=== PATIENT | male | born 1980 | race Two or more races ===

== ENCOUNTER 2025-07-22 07:33 | Inpatient (IN) | payer SELFPAY ==
[2025-07-22] VITALS (24 sets, daily range): BP systolic 120–167; BP diastolic 61–103; PULSE 56–92; RESP 14–26; TEMP 37.1–38.8; O2SAT 90–100; BMI 26.6
--- OUTSIDE RECORDS SUMMARY | 2025-07-22 03:21 | XMS_ITS | Continuity of Care Document ---
Author Organization [facility] Address [address] [place] [address] Phone Care Team Providers Care Administrative Secretary Name Role Phone Sukhdev MSN, FOREST WORKER, Lauren Unavailable Unavai lable Allergies, Adverse Reactions, Alerts Substance Reaction Status Criticality No Known Allergies Active No Inform ation Medications Medication Instructions Dosage Effective Dates (start - stop) Status Comments irbesartan 75 mg tablet take 1 tablet by oral route every day 75 MG - Active Claribel Allergy 180 mg tablet take 1 tablet by oral route every day 180 MG - Active fluticasone propionate 50 mcg/actuation nasal spray,suspension spray 1 - 2 spray by intranasal route every day in each nostril as needed 50-100 MCG - Active Advance Directives Directive Yes / No Effective Date File Name No Information Encounters Encounter Description Practice Location Reason(s) For Visit Diagnoses Date Provider [facility], [address] [place] [address], [facility], tel:[phone] [email or web address] No Information Sukhdev Aguilar. [address] [place], [place], [id number] , . tel:[phone] [facility], [facility] [address] [place], [place], [facility], tel:[phone] [facility] [place] f/u labs (chief complaint) Body mass index [BMI] 25.0-25.9, adultEssential (primary) hypertensionHyperlipi demia, unspecifiedAcute renal injury Santizo Lauren. [address] [place], [place], [id number] , [place]. tel: [phone] [facility], [address] [place], [address], tel:[phone] [facility] [place] Prapare (chief complaint)D epression screening (chief complaint)E stablish Care (chief complaint) Extreme povertyLess than a high school diplomaInsufficient health insurance coverageEncounter for screening for depressionBody mass index [BMI] 24.0-24.9, adultEssential (primary) hypertensionOther seasonal allergic rhinitisHyperlipidemi a, unspecified Sukhdev Aguilar. [address] [place], [place], [id number] , . tel: [phone] Family History Family Member Type Diagnosis Age At Onset No Information Payers Payer name Insurance type Covered green party ID Leandra ocampo(s) [facility]- Covered Under Aubrey CI [id number] Social History Type Description Quantity Date Captured Comments Sex Male Smoking Status No Information Sexual Orientation Straight or heterosexual Apr Gender Identity Male Chief Complaint And Reason For Visit No Information Plan Of Treatment Date Type Action Status Goal Lipid panel. Due on 026 due Goal CMP. Due on due Goal Tobacco Use Cessation Counse ling. Due on due Goal Drug Abuse Screening Test (D AST-10). Due on due Goal Unhealthy drug use screening . Due on due Goal Vitamin B12. Due on 025 due Goal Obtain Height, Weight, and B ND. Due on due Goal CBC. Due on due Goal HIV screen. Due on 25 due Goal Influenza vaccine. Due on due Goal Depression screening. Due on due Goal Follow up Plan f or abnormal BMI (Less than 18.5, greater than 25). Due on due Goal Hepatitis C Screening. Due o n due Goal Generalized Anxi ety Disorder - 7 (SIRIA-7). Due on due Goal Vitamin D. Due on due Goal Tobacco Use Screening. Due o n due Goal Diabetes screening. Due on S due Goal Tobacco screening. Due on due Goal Obtain blood Pressure. Due o n due Goal Urinalysis. Due on due Goal ECG. Due on due Goal Hemoglobin (Preemie/HR 9 mon ths). Due on due Goal Hematocrit/Hemoglobin. Due o n due Goal Lifestyle education regardin g diet completed Goal Tobacco screening. Due on due Goal HIV screen. Due on due Goal Lipid panel. Due on 026 due Goal Drug Abuse Screening Test (D AST-10). Due on due Goal Obtain Height, Weight, and B ND. Due on due Goal Vitamin D. Due on due Goal Unhealthy drug use screening . Due on due Goal Tobacco Use Screening. Due o n due Goal Vitamin B12. Due on 025 due Goal Tobacco Use Cessation Allyson kirkland. Due on due Goal Depression screening. Due on due Goal Hepatitis C Screening. Due o n due Goal Influenza vaccine. Due on Se due Goal Diabetes screening. Due on S due Goal Generalized Anxi ety Disorder - 7 (SIRIA-7). Due on due Goal CMP. Due on due Goal CBC. Due on due Goal Follow up Plan f or abnormal BMI (Less than 18.5, greater than 25). Due on due Goal Hematocrit/Hemoglobin. Due o n due Goal Hemoglobin (Preemie/HR 9 mon ths). Due on due Goal Urinalysis. Due on due Goal ECG. Due on due Goal Obtain blood Pressure. Due o n due Goal Lifestyle education regardin g diet completed History Of Present Illness Encounter Date Complaint History Of Prese nt Illness f/u labs Jonathan is here to day for f/u on labs:Overall okLDL 144 and trigs 75- will start rosuvistatinCreatinine 1.40- increase water and avoid use of NSAIDSreports he has been drinking water and does use ibuprofen at times, but not often.Will plan to repeat cmp in 1 month. [place] complete d 05/08/25. -Aw, CM Depression screening Depression screening completed 05/08/25. Pt scored 0, provider aware. -AW,CM Establish Care Jonathan is here to day as a new patient to establish care.He has NKA. His BP today is 160/90 in his right arm while sitting and 161/90 in his left arm while sitting. His HR is 50 bpm, retake is 53 bpm, Respirations are 18, Temp 98.1, and O2 is 98%He is here today for evaluation and tx of Abdominal pain x 3 months in Right Mid Quadrant.His health hx includes HLD, HTN and Seasonal Allergies. He denies any surgical hx. No hx of a Colonoscopy. His family hx includes his mother who is alive and well, his father is from lung issues, 6 sisters that are alive and well, 3 brothers, 1 has HTN, BPH, Anxiety, 1 daughter that is alive and well and 2 sons that are alive and well. Pt is not a current smoker. He used to smoke 1/2 ppd. He started smoking at the age of 14 and quit 2 months ago at age 44. He is exposed to second hand smoke in the home. He also drinks 2-6 beers every weekend. He denies past or present recreational drug use. He drinks 4 cups of coffee and soda daily.He reports that he has had his Covid Vaccines, including a booster. He has not had his flu shot for this season. He denies seeing any specialist at this time. Instructions Date Instruction Additional Infor milanj Maintain blood press ure levels and sugar levels in goal range to reduce further renal damage. Follow a low-salt, renal diet. Avoid NSAIDs if at all possible. Drink water for hydration. Limit soda consumption. Maintain healthy body weight. Physical activity as tolerated. Related to Acute renal injury Low fat, low cholest elvira diet. Avoid fatty, fried, and greasy foods. Physical activity as tolerated. Counseled on risks of associated comorbidities, such as heart disease and stroke. Encouraged avoidance of tobacco products. Related to Hyperlipidemia, unspecified Patient instructed o f the importance of taking medications as prescribed, following a low salt diet as well as getting physical activity as tolerated. Patient advised to keep BP log daily checking each morning and before bed. Patient to call the clinic if systolic blood pressure is greater than 150 and/or diastolic blood pressure is staying greater than 90. Related to Essential (primary) hypertension Giving encouragement to exercise Related to Body mass index [BMI] 25.0-25.9, adult Lifestyle education regarding di et Related to Body mass index [BMI] 25.0-25.9, adult Low fat, low cholest elvira diet. Avoid fatty, fried, and greasy foods. Physical activity as tolerated. Counseled on risks of associated comorbidities, such as heart disease and stroke. Encouraged avoidance of tobacco products. Related to Hyperlipidemia, unspecified Drink plenty of flui ds. Use nasal saline rinses. Nasal steroid spray if tolerated. Antihistamines as needed. Avoid allergy triggers when possible. Related to Other seasonal allergic rhinitis Patient instructed o f the importance of taking medications as prescribed, following a low salt diet as well as getting physical activity as tolerated. Patient advised to keep BP log daily checking each morning and before bed. Patient to call the clinic if systolic blood pressure is greater than 150 and/or diastolic blood pressure is staying greater than 90. Related to Essential (primary) hypertension Giving encouragement to exercise Related to Body mass index [BMI] 24.0-24.9, adult Lifestyle education regarding di et Related to Body mass index [BMI] 24.0-24.9, adult Assessments Type Assessment Date No Information
--- OUTSIDE RECORDS SUMMARY | 2025-07-22 03:21 | XMS_ITS | Continuity of Care Document ---
Author Organization [facility] Address [address] [place] [address] Phone Care Team Providers Care Rn Social Work Name Role Phone Sukhdev MSN, BUS INSPECTOR, Lauren Unavailable Unavai lable Allergies, Adverse Reactions, [...] Location Reason(s) For Visit Diagnoses Date Provider [facility], [address] [place] [address], [facility], tel:[phone] [place] No Information Sukhdev Aguilar. [address] [place], [place], [id number] , . tel:[phone] [facility], [facility] [address] [place], [place], [facility], tel:[phone] [address] [facility] [place] [place] f/u labs (chief complaint) Body mass index [BMI] 25.0-25.9, adultEssential (primary) hypertensionHyperlipi demia, unspecifiedAcute renal injury Santizo Lauren. [address] [place], [place], [id number] , [place]. tel: [phone] [facility], [address] [place], [address], tel:[phone] [address] [facility] [place] [place] Prapare (chief complaint)D epression screening (chief complaint)E stablish Care (chief complaint) Extreme povertyLess than a high school diplomaInsufficient health insurance coverageEncounter for screening for depressionBody mass index [BMI] 24.0-24.9, adultEssential (primary) hypertensionOther seasonal allergic rhinitisHyperlipidemi a, unspecified Sukhdev Aguilar. [address] [place], [place], [id number] , . tel: [phone] Family History Family Member Type Diagnosis Age At Onset No Information Payers Payer name Insurance type Covered constitution party ID Leandra ocampo(s) [facility]- Covered Under Aubrey CI [id number] Social History Type Description Quantity Date Captured [...] due Goal Obtain Height, Weight, and B RI. Due on due Goal CBC. Due on [...] due Goal Obtain Height, Weight, and B RI. Due on due Goal Vitamin D. Due [...]
--- NOTE | 2025-07-22 07:52 | CT_ITS ---
FINAL REPORT TECHNIQUE: Thin section axial images are obtained through the abdomen and pelvis after intravenous contrast. Reconstruction images were obtained from the axial data. Exam was performed using dose reduction techniques. CLINICAL HISTORY: right sided abominal tenderness COMPARISON: None FINDINGS: LUNG BASES: Nonspecific ground glass opacity in the lower lobes, pneumonia not excluded. Heart size is normal. LIVER: Homogeneous. No focal lesion. GALLBLADDER/BILIARY SYSTEM: Gallbladder is present. No gallstones. No biliary dilatation. SPLEEN: Unremarkable. PANCREAS: Unremarkable. ADRENALS: Unremarkable. KIDNEYS/URETERS/BLADDER: There are innumerable cysts in the kidneys bilaterally. No hydronephrosis. The kidneys are mildly enlarged. Unremarkable urinary bladder. GI TRACT: No evidence of small bowel obstruction. Dilated thick-walled retrocecal appendix measuring 12 mm in diameter with surrounding inflammation consistent with acute appendicitis. Remaining GI tract without acute abnormality. PELVIC ORGANS: Prostate enlarged. Areas of hypodensity in the prostate, prostatitis cannot be excluded. LYMPH NODES/RETROPERITONEUM/MESENTERY: No lymphadenopathy. No abdominal aortic aneurysm. ABDOMINAL WALL: The abdominal wall is intact. FREE FLUID: No ascites. BONES: No acute osseous abnormality. IMPRESSION: Acute appendicitis in the retrocecal appendix. Areas of hypodensity in the prostate which is enlarged for age, prostatitis on excluded. Enlarged kidneys with innumerable cysts raising concern for autosomal dominant polycystic kidney disease. Reviewed, Interpreted and Dictated by Yuliya Bueno MD Transcribed by Natty Topete Authenticated and [facility]
[2025-07-22] MEDS: MORPHINE 4MG/ML SYRINGE 4 MG IV (08:11)
[2025-07-22] MEDS: ONDANSETRON 4MG/2ML VIAL 4 MG IV (08:11)
[2025-07-22 08:12] LABS: Hematocrit 39.0 % (42.0-52.0); Hemoglobin 13.2 g/dL (14.1-18.0); Immature Granulocytes % 0.4 %; Mean Corpuscular HGB Conc 33.8 g/dL (31.8-35.4); Mean Corpuscular Hemoglobin 30.1 pg (27.0-31.2); Mean Corpuscular Volume 88.8 fl (80-94); Nucleated Red Blood Cells % 0 %; Platelet Count 334 K/mm3 (142-424); Red Blood Count 4.39 M/mm3 (4.60-6.20); Red Cell Distribution Width-SD 42.7 fL; White Blood Count 18.3 K/mm3 (4.8-10.8)
[2025-07-22 08:13] LABS: Alanine Aminotransferase 37 U/L (12-78); Albumin Level 4.5 g/dl (3.5-5.0); Albumin/Globulin Ratio 1.4 (1.1-1.8); Alkaline Phosphatase 68 U/L (38-126); Anion Gap 11.1 mEq/L (5-15); Aspartate Amino Transferase 42 U/L (17-59); Bilirubin,Total 0.6 mg/dl (0.2-1.3); Blood Urea Nitrogen 23 mg/dl (9-20); Calcium 9.2 mg/dl (8.4-10.2); Carbon Dioxide 26 mmol/L (22.0-30.0); Chloride 102 mmol/L (98-107); Creatinine Clearance Estimated 83 mL/min (50-200); Creatinine,Serum 1.10 mg/dl (0.66-1.25); Estimated Glomerular Filt Rate 72 ml/min (>60); GFR (African American) 87 ML/MIN (>60); Globulin 3.3 g/dL (1.3-3.2); Glucose 167 mg/dl (74-100); INR 1.04 (0.9-1.1); Lipase 59 U/L (23-300); Potassium 4.1 mmoL/L (3.5-5.1); Prothrombin Time 11.5 seconds (10.1-12.5); Sodium 135 mmol/L (136-145); Total Protein,Serum 7.8 g/dl (6.3-8.2)
[2025-07-22 08:27] LABS: Magnesium 1.7 mg/dl (1.6-2.3)
[2025-07-22] MEDS: SODIUM CHLORIDE 0.9% 10ML SYR (RAD ONLY) 10 ML IV (08:38)
[2025-07-22] MEDS: IOPAMIDOL-370 (76%);100ML BOTTLE 75 ML IV (08:38)
[2025-07-22 08:51] LABS: Microscopic, Urine URINE MICROSCOPIC (MICROSCOPIC)
--- NOTE | 2025-07-22 08:57 | ED_ITS ---
Discharge Plan Disposition Patient Disposition: Still a Patient Condition: Fair Clinical Impressions Clinical Impression: Appendicitis Discharge ED Provider: Mi Rose General Adult HPI General Chief complaint: Abdominal Pain Stated complaint: Stomach Pain Time Seen by Provider: 07/22/25 07:38 Mode of Arrival: Ambulatory Source of Information: Patient Description of Symptoms (Recalled from ER Triage Doc. by RN): pt presents to ED with c/o right sided abdominal pain. pt reports symptoms began last night around 10 pm. pt reports that last night he took an omprazole but no relief. pt reports no history of surgeries. pt reports some nausea, but no vomitting or diarrhea. History of Present Illness HPI narrative: Patient is a 44-year-old gentleman, Jamaican-speaking who presented to the emergency department with acute onset right lower quadrant abdominal pain. Patient states that the pain started acutely, does not radiate into his groin or into his back. Patient denies any vomiting or diarrhea. Patient denies any fevers. Patient denies any chest pain or shortness of breath or upper respiratory symptoms. Patient denies any prior surgeries. Patient does not take any daily medications. States that his pain is currently an 8 out of 10. No urinary symptoms. Related Data Home Medications ?Medication ?Instructions ?Recorded ?Confirmed fexofenadine 180 mg tablet 180 mg PO DAILY 07/22/25 fluticasone propionate 50 1 spray intranasal BID PRN 1 09/21/24 07/22/25 mcg/actuation nasal ALLERGIES spray,suspension (Flonase Allergy Relief) irbesartan 75 mg tablet 75 mg PO DAILY 07/22/2506/28 Allergies Allergy/AdvReac Type Severity Reaction Status Date / Time No Known Allergies Allergy Verified 07/22/25 07:49 [facility] Disclaimer: The information contained in this section may have been updated after the patient was seen, as this information can be updated by other users. Social History (Updated 07/22/25 @ 10:53 by Zohaib Canas MD) Smoking Status: Never smoker alcohol intake: never current occupational status: employed Travel in the last 8 weeks?: None ROS Obtained: Yes All systems reviewed & no additional complaints except as documented and Yes Systems reviewed as appropriate & no additional complaints except as documented Physical Exam General General appearance: alert and in no apparent distress Head Head exam: atraumatic, normocephalic and normal inspection Eye Eye exam: Present normal appearance, PERRL and EOMI; Absent scleral icterus ENT ENT exam: Present normal exam and normal external ear exam Neck Neck exam: Present normal inspection and full ROM Chest Chest inspection: Present normal inspection and symmetric chest wall rise Respiratory Respiratory exam: Present normal lung sounds bilaterally; Absent respiratory distress or wheezes Cardiovascular Cardiovascular exam: Present regular rate, normal rhythm and normal heart sounds Abdominal Exam Abdominal exam: Present soft, distention and tenderness (RLQ tenderness); Absent guarding or rebound Extremities Exam Extremities exam: Present normal inspection and full ROM Back Exam Back exam: Present normal inspection and full ROM Neurological Exam Neurological exam: Present alert and oriented X3 Psychiatric Psychiatric exam: Present normal affect and normal mood Skin Skin exam: Present warm and dry Medical Decision Making Medical Records Medical records reviewed: Yes I reviewed the patient's medical records. Screening: Per USPSTF and CDC recommendations, given the prevalence of disease in our region, it is our hospital?s policy to screen for HIV and viral Hepatitis for all patients aged 18 and over and those with ongoing risk factors. [place] Inquiry Pt receiving controlled substance: No Vital Signs: 07/22/25 07:47 07/22/25 07:53 07/22/25 08:00 Temperature 98.9 F Temperature Source Oral Pulse Rate 57 L 56 L Pulse Rate [Left Radial] 64 Respiratory Rate 14 19 21 Blood Pressure 138/81 130/83 Blood Pressure [Right Arm] 145/95 H Blood Pressure Mean [Right Arm] 111 Blood Pressure Source [Right Arm] Blood Pressure Position [Right Arm] 02 Sat by Pulse Oximetry 98 98 100 Oxygen Delivery Method Room Air Room Air Room Air 07/22/25 08:45 07/22/25 09:00 07/22/25 09:17 Temperature Temperature Source Pulse Rate 62 61 70 Pulse Rate [Left Radial] Respiratory Rate 18 14 22 Blood Pressure 139/82 146/92 H 120/91 H Blood Pressure [Right Arm] Blood Pressure Mean [Right Arm] Blood Pressure Source [Right Arm] Blood Pressure Position [Right Arm] 02 Sat by Pulse Oximetry 99 98 96 Oxygen Delivery Method 07/22/25 09:30 07/22/25 09:45 07/22/25 10:30 Temperature 98.8 F Temperature Source Temporal Artery Scan Pulse Rate 71 62 Pulse Rate [Left Radial] 62 Respiratory Rate 15 23 23 Blood Pressure 151/89 H 131/86 Blood Pressure [Right Arm] 131/86 Blood Pressure Mean [Right Arm] 101 Blood Pressure Source [Right Arm] Automatic Cuff Blood Pressure Position [Right Arm] Supine 02 Sat by Pulse Oximetry 98 97 99 Oxygen Delivery Method Room Air 07/22/25 10:31 Temperature 98.8 F Temperature Source Pulse Rate 62 Pulse Rate [Left Radial] Respiratory Rate 23 Blood Pressure 131/86 Blood Pressure [Right Arm] Blood Pressure Mean [Right Arm] Blood Pressure Source [Right Arm] Blood Pressure Position [Right Arm] 02 Sat by Pulse Oximetry Oxygen Delivery Method Room Air Lab Data Lab results reviewed: Yes I reviewed the patient's lab results. Lab Results 07/22/25 07:44: WBC 18.3 H, RBC 4.39 L, Hgb 13.2 L, Hct 39.0 L, MCV 88.8, MCH 30.1, MCHC 33.8, RDW 13.1, Plt Count 334, MPV 10.9 H, Neut % (Auto) 78.2, Lymph % (Auto) 15.8, [place] % (Auto) 4.4, Eos % (Auto) 0.9, Baso % (Auto) 0.3, Neut # (Auto) 14.3 H, Lymph # (Auto) 2.9, [place] # (Auto) 0.8, Eos # (Auto) 0.2, Baso # (Auto) 0.1, PT 11.5, INR 1.04, Sodium 135 L, Potassium 4.1, Chloride 102, Carbon Dioxide 26, Anion Gap 11.1, BUN 23 H, Creatinine 1.10, Estimated Creat Clear 83, Estimated GFR 72, Est GFR ( Amer) 87, Glucose 167 H, Calcium 9.2, Magnesium 1.7, Total Bilirubin 0.6, AST 42, ALT 37, Alkaline Phosphatase 68, Total Protein 7.8, Albumin 4.5, Globulin 3.3 H, Albumin/Globulin Ratio 1.4, Lipase 59, HCV Ab RAMONE w/Rflx PCR Qn Negative, HIV Ag/Ab Combo Qual Negative 07/22/25 08:08: Blood Type A Positive, Antibody Screen Negative 07/22/25 08:45: Urine Color Yellow, Urine Appearance Clear, Urine pH 5.5, Ur Specific [place] 1.010, Urine Protein Trace, Urine Glucose (UA) Negative, Urine Ketones Negative, Urine Blood 1+ A, Urine Nitrate Negative, Urine Bilirubin Negative, Urine Urobilinogen 0.2, Ur Leukocyte Esterase Negative, Urine RBC 3-5, Urine WBC Occasional, Ur Squamous Epith Cells Occasional, Urine Bacteria None 07/22/25 11:05: Urine Color Yellow, Urine Appearance Clear, Urine pH 6.0, Ur Specific [place] <= 1.005, Urine Protein Trace, Urine Glucose (UA) Negative, Urine Ketones Negative, Urine Blood 2+, Urine Nitrate Negative, Urine Bilirubin Negative, Urine Urobilinogen 0.2, Ur Leukocyte Esterase Negative, Urine RBC Occasional, Urine WBC Occasional, Ur Squamous Epith Cells None, Urine Bacteria Trace 07/22/25 07:44 07/22/25 07:44 Orders (Tests/Meds): ED MEDICATIONS Generic Name Dose Route Start Last Admin Trade Name Freq PRN Reason Stop Dose Admin Hydrocodone Bitart/Acetaminophen 1 tab 07/22/25 12:27 Hydrocodone/Apap 5/325 Mg Tablet PO 08/21/25 12:26 Q6HP PRN Moderate to Severe Pain (4-10) Sodium Chloride 1,000 mls @ 125 mls/hr 07/22/25 12:30 07/22/25 13:48 Sod Chlor 0.9% 1000ml Bag IV 08/21/25 12:29 125 mls/hr .Q8H NABIL Administration Piperacillin Sod/Tazobactam 100 mls @ 200 mls/hr 07/22/25 17:00 Sod 4.5 gm/ Sodium Chloride IV 08/01/25 16:59 Q6H NABIL Ketorolac Tromethamine 15 mg 07/22/25 12:27 07/22/25 15:27 Ketorolac 30mg/Ml Vial IV 07/27/25 12:26 15 mg Q6HP PRN Administration Mild to Moderate Pain (1-6) Morphine Sulfate 1 mg 07/22/25 12:27 Morphine 2mg/Ml Syringe IV 08/21/25 12:26 Q1HP PRN Moderate to Severe Pain (4-10) Ondansetron HCl 4 mg 07/22/25 12:27 Ondansetron 4mg/2ml Vial IV 08/21/25 12:26 Q6HP PRN Nausea Sodium Chloride 10 ml 07/22/25 12:34 Sodium Chloride 0.9% 10ml Flush Syringe IV 08/21/25 12:33 NEEDED PRN Maintain IV Site Discontinued Medications Generic Name Dose Route Start Last Admin Trade Name Emeka PRN Reason Stop Dose Admin Piperacillin Sod/Tazobactam 100 mls @ 200 mls/hr 07/22/25 10:30 07/22/25 14:03 Sod 4.5 gm/ Sodium Chloride IV 08/01/25 10:29 Infused Q8H NABIL Infusion Iopamidol 75 ml 07/22/25 08:37 07/22/25 08:38 Iopamidol-370 (76%);100ml Bottle IV 07/22/25 08:38 75 ml ONCE ONE Administration Morphine Sulfate 4 mg 07/22/25 07:53 07/22/25 08:11 Morphine 4mg/Ml Syringe IV 07/22/25 07:54 4 mg ONCE ONE Administration Ondansetron HCl 4 mg 07/22/25 07:53 07/22/25 08:11 Ondansetron 4mg/2ml Vial IV 07/22/25 07:54 4 mg ONCE ONE Administration Sodium Chloride 10 ml 07/22/25 08:37 07/22/25 08:38 Sodium Chloride 0.9% 10ml Syr (Rad Only) IV 08/21/25 08:36 10 ml NEEDED PRN Administration Maintain IV Site ORDERS Category Date Time Status Type and Screen Stat BBK 07/22/25 08:[address] abdomen pelvis w con Stat Cat Scan 07/22/25 07:52 Completed Basic Metabolic Panel Routine Lab 07/23/25 06:00 Ordered CBC w/Auto Diff [Complete Blood Count Auto Diff] Stat Lab 07/22/25 07:44 Completed CMP [Comprehensive Metabolic Panel] Stat Lab 07/22/25 07:44 Completed Complete Blood Count Auto Diff Routine Lab 07/23/25 06:00 Ordered HIV Combo Routine Lab 07/22/25 07:44 Completed Hepatitis C Ab Qual. W/ RFX Routine Lab 07/22/25 07:44 Completed Lipase Stat Lab 07/22/25 07:44 Completed MAG [Magnesium] Stat Lab 07/22/25 07:44 Completed PT INR [Prothrombin Time INR] Stat Lab 07/22/25 07:44 Completed UA [Urinalysis and Microscopic] Stat Lab 07/22/25 08:45 Completed Urinalysis (cathed specimen) Routine Lab 07/22/25 11:05 Completed Urine Culture Stat Micro 07/22/25 09:03 Ordered Medical Decision Narrative: Patient is a 44-year-old gentleman who is Jamaican-speaking who presented to the emergency department with acute onset right lower quadrant abdominal pain. On arrival, patient was hemodynamically stable with unremarkable vital signs. Differential includes but not limited to: Urinary tract infection, nephrolithiasis, appendicitis, testicular pathology, amongst others. On exam, patient had focal right lower quadrant abdominal tenderness. Labs were obtained as well as CT scan. Patient was given pain medications and nausea medications. Patient's labs were reviewed and interpreted by myself: CBC showed a leukocytosis of 18, hemoglobin was stable. CMP was unremarkable. UA showed no evidence of infection. CT scan of the abdomen showed acute appendicitis. Patient was given a dose of Zosyn here in the emergency department. General surgery was consulted. Patient was taken to the OR for appendectomy. Critical Care Critical Care Time Critical Care Time: No
[2025-07-22 09:08] LABS: Bilirubin,Urine Negative (Negative); Color,Urine YELLOW (Yellow); Glucose,Urine (UA) Negative (Negative); Ketones,Urine Negative (Negative); Leukocyte Esterase,Urine Negative (Negative); PH,Urine 5.5 (5.0-8.5); Protein,Urine TRACE (Negative); Specific Gravity, Urine 1.010 (1.005-1.030); Urobilinogen,Urine 0.2 EU/dl (0.2)
[2025-07-22 09:22] LABS: Squamous Epithelial Cell,Urine Occasional #/hpf (0-5); WBC,Urine Occasional #/hpf (0-3)
--- NOTE | 2025-07-22 10:02 | PC.NURSE ---
gen surgery paged
--- NOTE | 2025-07-22 10:05 | PC.NURSE ---
les greene obtaining blood cultures
[2025-07-22 10:37] LABS: Hepatitis C Ab Qual. W/ RFX NEGATIVE (Negative)
--- NOTE | 2025-07-22 10:49 | P.HP_ITS ---
HPI HPI HPI: This is a 44-year-old gentleman who presented to the emergency department with increasing right lower quadrant pain. Radiographic evidence consistent with appendicitis noted. CBC from earlier today reviewed. WBC 18.3. Neutrophil percentage 78.2. CMP from earlier today reviewed. Potassium normal. Creatinine normal. LFTs normal. CT scan of abdomen/pelvis from earlier today reviewed. Impression as follows: Acute appendicitis in the retrocecal appendix. Areas of hypodensity in the prostate which is enlarged for age, prostatitis on excluded. Enlarged kidneys with innumerable cysts raising concern for autosomal dominant polycystic kidney disease. Forwarded from emergency department evaluation: Chief complaint: Abdominal Pain Stated complaint: Stomach Pain Time Seen by Provider: 07/22/25 07:38 Mode of Arrival: Ambulatory Source of Information: Patient Description of Symptoms (Recalled from ER Triage Doc. by RN): pt presents to ED with c/o right sided abdominal pain. pt reports symptoms began last night around 10 pm. pt reports that last night he took an omprazole but no relief. pt reports no history of surgeries. pt reports some nausea, but no vomitting or diarrhea. [facility] Disclaimer: The information contained in this section may have been updated after the patient was seen, as this information can be updated by other users. Social History Smoking Status: Never smoker alcohol intake: never current occupational status: employed Travel in the last 8 weeks?: None Review of Systems Review of Systems Review of systems:: pertinent systems reviewed and negative unless documented below *Gastrointestinal Gastrointestinal: Reports as per HPI Meds Home Medications and Allergies Home Medications ?Medication ?Instructions ?Recorded ?Confirmed ?Type No Known Home Medications 07/22/2506/28 History New Prescriptions to Start Prescriptions: Allergies Allergy/AdvReac Type Severity Reaction Status Date / Time No Known Allergies Allergy Verified 07/22/25 07:49 Exam Data for Last 24 hours Vital signs and Labs for Last 24 Hours: Temp Pulse Resp BP Pulse Ox O2 Del Method 98.8 F 62 23 131/86 97 Room Air 07/22/25 10:31 07/22/25 10:31 07/22/25 10:31 07/22/25 10:31 07/22/25 09:45 07/22/25 10:31 Laboratory Results - last 24 hr 07/22/25 07:44: WBC 18.3 H, RBC 4.39 L, Hgb 13.2 L, Hct 39.0 L, MCV 88.8, MCH 30.1, MCHC 33.8, RDW 13.1, Plt Count 334, MPV 10.9 H, Neut % (Auto) 78.2, Lymph % (Auto) 15.8, [place] % (Auto) 4.4, Eos % (Auto) 0.9, Baso % (Auto) 0.3, Neut # (Auto) 14.3 H, Lymph # (Auto) 2.9, [place] # (Auto) 0.8, Eos # (Auto) 0.2, Baso # (Auto) 0.1, PT 11.5, INR 1.04, Sodium 135 L, Potassium 4.1, Chloride 102, Carbon Dioxide 26, Anion Gap 11.1, BUN 23 H, Creatinine 1.10, Estimated Creat Clear 83, Estimated GFR 72, Est GFR ( Amer) 87, Glucose 167 H, Calcium 9.2, Magnesium 1.7, Total Bilirubin 0.6, AST 42, ALT 37, Alkaline Phosphatase 68, Total Protein 7.8, Albumin 4.5, Globulin 3.3 H, Albumin/Globulin Ratio 1.4, Lipase 59, HCV Ab RAMONE w/Rflx PCR Qn Negative, HIV Ag/Ab Combo Qual Negative 07/22/25 08:08: Blood Type A Positive, Antibody Screen Negative 07/22/25 08:45: Urine Color Yellow, Urine Appearance Clear, Urine pH 5.5, Ur Specific [place] 1.010, Urine Protein Trace, Urine Glucose (UA) Negative, Urine Ketones Negative, Urine Blood 1+ A, Urine Nitrate Negative, Urine Bilirubin Negative, Urine Urobilinogen 0.2, Ur Leukocyte Esterase Negative, Urine RBC 3-5, Urine WBC Occasional, Ur Squamous Epith Cells Occasional, Urine Bacteria None I & O for Last 24 hours: Intake & Output 07/19/25 07/20/25 07/21/25 07/22/25 11:59 11:59 11:59 11:59 Weight 155 lb Constitutional Constitutional: no acute distress *Routine HEENT Exam Head: Present normocephalic Eye: Present EOMI ENT: Present mucous membranes moist *Routine Neck Exam Neck: Present full ROM *Routine Respiratory Exam Respiratory: Absent respiratory distress *Routine Cardiovascular Exam Cardiovascular: Absent tachycardia *Routine Abdominal Exam Abdominal: Present soft and tenderness *Routine Rectal Exam Rectal:: deferred *Routine Genitalia Exam Genitalia:: deferred *Routine Extremities Exam Extremities: Present full ROM *Routine Skin Exam Skin: Absent erythema *Routine Neurological Exam Neurological: Present alert Results Results Lab Results Last 24 Hours:: Laboratory Results - last 24 hr 07/22/25 07:44: WBC 18.3 H, RBC 4.39 L, Hgb 13.2 L, Hct 39.0 L, MCV 88.8, MCH 30.1, MCHC 33.8, RDW 13.1, Plt Count 334, MPV 10.9 H, Neut % (Auto) 78.2, Lymph % (Auto) 15.8, [place] % (Auto) 4.4, Eos % (Auto) 0.9, Baso % (Auto) 0.3, Neut # (Auto) 14.3 H, Lymph # (Auto) 2.9, [place] # (Auto) 0.8, Eos # (Auto) 0.2, Baso # (Auto) 0.1, PT 11.5, INR 1.04, Sodium 135 L, Potassium 4.1, Chloride 102, Carbon Dioxide 26, Anion Gap 11.1, BUN 23 H, Creatinine 1.10, Estimated Creat Clear 83, Estimated GFR 72, Est GFR ( Amer) 87, Glucose 167 H, Calcium 9.2, Magnesium 1.7, Total Bilirubin 0.6, AST 42, ALT 37, Alkaline Phosphatase 68, Total Protein 7.8, Albumin 4.5, Globulin 3.3 H, Albumin/Globulin Ratio 1.4, Lipase 59, HCV Ab RAMONE w/Rflx PCR Qn Negative, HIV Ag/Ab Combo Qual Negative 07/22/25 08:08: Blood Type A Positive, Antibody Screen Negative 07/22/25 08:45: Urine Color Yellow, Urine Appearance Clear, Urine pH 5.5, Ur Specific [place] 1.010, Urine Protein Trace, Urine Glucose (UA) Negative, Urine Ketones Negative, Urine Blood 1+ A, Urine Nitrate Negative, Urine Bilirubin Negative, Urine Urobilinogen 0.2, Ur Leukocyte Esterase Negative, Urine RBC 3-5, Urine WBC Occasional, Ur Squamous Epith Cells Occasional, Urine Bacteria None CT scan - abdomen: report reviewed and image reviewed CT scan - pelvis: report reviewed and image reviewed Assessment and Plan *Assessment and plan (1) Appendicitis: Status: Acute Qualifiers: Appendicitis type: acute appendicitis Acute appendicitis type: with localized peritonitis Appendicitis gangrene presence: without gangrene Appendicitis perforation presence: without perforation Appendicitis abscess presence: without abscess Qualified Code(s): K35.30 - Acute appendicitis with localized peritonitis, without perforation or gangrene Category: Medical Code(s): K37 - Unspecified appendicitis Plan: Transfer to operative suite for laparoscopic appendectomy I have discussed the risks and benefits including, but not limited to: Bleeding Infection Damage to surrounding tissue Inherent risks of sedation The patient agrees to proceed.
[2025-07-22] MEDS: PIPERACILLIN/TAZO 4.5 GM in 0.9 % SODIUM CHLORIDE 100 ML IV ×3 (11:00→22:40)
[2025-07-22] MEDS: LIDOCAINE 1% 20ML MDV 20 ML (11:24)
--- NOTE | 2025-07-22 12:19 | P.OP_ITS ---
Date of procedure: 07/22/25 Pre-op Diagnosis:: Appendicitis Post-op Diagnosis:: Appendicitis with necrosis/perforation Procedure performed:: Laparoscopic appendectomy Surgeon:: Zohaib Canas MD PLASMA PROCESSING CENTRIFUGE OPERATOR:: Cipriano Salinas Anesthesia: GETA Estimated blood loss (mL): 15 Operative findings:: Retrocecal appendix Appendiceal base appeared viable Remaining portion of appendix with profound inflammation/necrosis Mid/distal appendix with fulminant necrosis/perforation Operative note:: After informed consent was obtained the patient was taken to the operating room and placed in the supine position. General anesthesia was induced and his abdomen was prepped and draped in a sterile fashion. After infiltration with local anesthetic an infraumbilical incision was made. A Veress needle was placed in position. The abdomen was insufflated. A 12 mm optical trocar was placed in position. Under direct visualization a 5 mm trocar was placed in the suprapubic position and an additional 5 mm trocar was placed in the left lower quadrant. Inspection of the right lower quadrant revealed profound inflammation. The appendix, cecum, and terminal ileum were densely adhered to the right lateral sidewall. The base of the appendix appeared viable; however, profound inflammatory changes were noted throughout. The appendix was found to be retrocecal and essentially encased by the cecum and surrounding tissue. A window was made at the lateral margin of the proximal/mid appendix. A combination of blunt dissection and dissection with harmonic compa was utilized to carefully free the appendix laterally from surrounding tissue. Fulminant necrosis and obvious perforation were noted of the mid/distal appendix. Careful dissection continued in order to free the appendix from surrounding tissue. The appendix was carefully elevated and an Endopath 45 stapling device was utilized to transect at its base. The appendix was then placed in a retrieval bag and removed through the infraumbilical trocar site. Thorough irrigation revealed no obvious sign of injury or bleeding. Inspection of the appendix revealed likely transection of the distal appendix and likely partial tissue retainment . The staple line on the cecum appeared viable. No obvious injury to the small bowel, colon, or surrounding tissue was noted. The right ureter was not obviously visible along the dissection bed. The entire region was thoroughly irrigated. Fascia at the infraumbilical trocar site was reapproximated utilizing the Neoclose device. The remaining trocars were removed after pneumoperitoneum was released. All wounds were irrigated and skin was closed with 4-0 Monocryl in a subcuticular fashion. Steri-Strips were applied and the patient was transferred to recovery in stable condition. Condition: stable Disposition: PACU Specimens:: Appendix Complications:: No immediate
--- NOTE | 2025-07-22 13:19 | PC.NURSE ---
arrived from surgery to floor at 13:45
--- NOTE | 2025-07-22 13:35 | SUR.PHASEI ---
[id number] security shift supervisor assisted with communication while recovering in PACU.
[2025-07-22 13:43] LABS: Microscopic,Cath URINE MICROSCOPIC (MICROSCOPIC)
[2025-07-22] MEDS: 0.9 % SODIUM CHLORIDE 1000ML 1,000 ML 125 ML IV ×2 (13:48→22:39)
[2025-07-22 14:03] LABS: Appearance,Urine/Cath CLEAR (Clear); Bilirubin,Cath Negative (Negative); Blood, Urine/Cath 2+ (Negative); Color,Urine/Cath YELLOW (Yellow); Glucose,Urine/Cath (UA) Negative (Negative); Ketones,Urine/Cath Negative (Negative); Leukocyte Esterase,Cath Negative (Negative); Nitrate,Cath Negative (Negative); PH,Urine/Cath 6.0 (5.0-8.5); Protein,Urine/Cath TRACE (Negative); Specific Gravity, Urine/Cath <= 1.005 (1.005-1.030); Urobilinogen,Cath 0.2 EU/dl (0.2)
[2025-07-22 14:53] LABS: Bacteria,Urine/Cath TRACE /lpf; RBC,Urine/Cath Occasional # /hpf (0-3); WBC,Urine/Cath Occasional #/hpf (0-3)
--- NOTE | 2025-07-22 15:03 | PC.NURSE ---
Dr. Canas notified of pt's fever. no new orders at this time
[2025-07-22] MEDS: KETOROLAC 30MG/ML VIAL 15 MG IV (15:27)
--- NOTE | 2025-07-22 17:28 | PC.NURSE ---
Pt is A&Ox4. Vital signs stable tolerating room air. IV fluids infusing per MAR. Pt complains of abdominal pain. PRN pain medications given per MAR with relief. 3 lap sites to abdomen c/d/i. All pt communication was through ipad obstetrics gyn physician. Pt resting comfortably supine in bed with no further needs voiced at this time. Call light within reach.
[2025-07-22] MEDS: HYDROCODONE/APAP 5/325 MG TABLET 1 TAB PO (22:43)
[2025-07-23] VITALS (9 sets, daily range): BP systolic 110–137; BP diastolic 59–84; PULSE 72–96; RESP 16–18; TEMP 36.8–39.6; O2SAT 92–96; BMI 26.9
[2025-07-23] MEDS: MORPHINE 2MG/ML SYRINGE 1 MG IV (04:16)
[2025-07-23] MEDS: PIPERACILLIN/TAZO 4.5 GM in 0.9 % SODIUM CHLORIDE 100 ML IV ×4 (06:23→23:45)
[2025-07-23 07:34] LABS: Hematocrit 35.0 % (42.0-52.0); Immature Granulocytes % 0.4 %; Mean Corpuscular HGB Conc 33.4 g/dL (31.8-35.4); Mean Corpuscular Hemoglobin 30.0 pg (27.0-31.2); Mean Corpuscular Volume 89.7 fl (80-94); Nucleated Red Blood Cells % 0 %; Platelet Count 281 K/mm3 (142-424); Red Blood Count 3.90 M/mm3 (4.60-6.20); Red Cell Distribution Width-SD 44.0 fL; White Blood Count 18.0 K/mm3 (4.8-10.8)
[2025-07-23 07:46] LABS: Anion Gap 8.6 mEq/L (5-15); Blood Urea Nitrogen 19 mg/dl (9-20); Calcium 8.2 mg/dl (8.4-10.2); Carbon Dioxide 23 mmol/L (22.0-30.0); Chloride 105 mmol/L (98-107); Creatinine Clearance Estimated 78 mL/min (50-200); Creatinine,Serum 1.20 mg/dl (0.66-1.25); Estimated Glomerular Filt Rate 65 ml/min (>60); GFR (African American) 79 ML/MIN (>60); Glucose 96 mg/dl (74-100); Potassium 3.6 mmoL/L (3.5-5.1); Sodium 133 mmol/L (136-145)
--- NOTE | 2025-07-23 08:54 | EXP.SURG.PN ---
Subjective Patient reports: no new complaints and feels better Exam Data for Last 24 hours Vital signs and Labs for Last 24 Hours: Temp Pulse Resp BP Pulse Ox O2 Del Method O2 Flow Rate 99.9 F H 76 18 128/78 94 L Room Air 2 07/23/25 07:52 07/23/25 07:52 07/23/25 07:52 07/23/25 07:52 07/23/25 07:52 07/23/25 07:52 07/22/25 14:05 Laboratory Results - last 24 hr 07/22/25 07:44: HCV Ab RAMONE w/Rflx PCR Qn Negative, HIV Ag/Ab Combo Qual Negative 07/22/25 08:08: Blood Type A Positive, Antibody Screen Negative 07/22/25 08:45: Urine Color Yellow, Urine Appearance Clear, Urine pH 5.5, Ur Specific [place] 1.010, Urine Protein Trace, Urine Glucose (UA) Negative, Urine Ketones Negative, Urine Blood 1+ A, Urine Nitrate Negative, Urine Bilirubin Negative, Urine Urobilinogen 0.2, Ur Leukocyte Esterase Negative, Urine RBC 3-5, Urine WBC Occasional, Ur Squamous Epith Cells Occasional, Urine Bacteria None 07/22/25 11:05: Urine Color Yellow, Urine Appearance Clear, Urine pH 6.0, Ur Specific [place] <= 1.005, Urine Protein Trace, Urine Glucose (UA) Negative, Urine Ketones Negative, Urine Blood 2+, Urine Nitrate Negative, Urine Bilirubin Negative, Urine Urobilinogen 0.2, Ur Leukocyte Esterase Negative, Urine RBC Occasional, Urine WBC Occasional, Ur Squamous Epith Cells None, Urine Bacteria Trace 07/23/25 06:32: WBC 18.0 H, RBC 3.90 L, Hct 35.0 L, MCV 89.7, MCH 30.0, MCHC 33.4, RDW 13.5, Plt Count 281, MPV 11.1 H, Neut % (Auto) 82.4 H, Lymph % (Auto) 11.9, [place] % (Auto) 4.8, Eos % (Auto) 0.2, Baso % (Auto) 0.3, Neut # (Auto) 14.8 H, Lymph # (Auto) 2.2, [place] # (Auto) 0.9, Eos # (Auto) 0.0, Baso # (Auto) 0.1, Sodium 133 L, Potassium 3.6, Chloride 105, Carbon Dioxide 23, Anion Gap 8.6, BUN 19, Creatinine 1.20, Estimated Creat Clear 78, Estimated GFR 65, Est GFR ( Amer) 79, Glucose 96 D, Calcium 8.2 L I & O for Last 24 hours: Intake & Output 07/20/25 07/21/25 07/22/25 07/23/25 11:59 11:59 11:59 11:59 Intake Total 2940 / 2940 Output Total 875 / 875 Balance 2064 / 2064 Weight 155 lb 158 lb Constitutional Constitutional: no acute distress *Routine Respiratory Exam Respiratory: Absent respiratory distress *Routine Cardiovascular Exam Cardiovascular: Absent tachycardia *Routine Abdominal Exam Abdominal: Present soft and tenderness (Expected post-operative tenderness) Comments: Dressings in place. No cellulitis. Progress Note: A&P Assessment and plan (1) Acute perforated appendicitis: Status: Acute Assessment and plan: Overall, doing well postoperative day 1 status post laparoscopic appendectomy Increase ambulation Continue IV antibiotics Slowly advance diet (2) Leukocytosis: Status: Acute Assessment and plan: White blood cell count slightly improved this morning Continue current antibiotics for perforated appendicitis Repeat CBC in a.m.
[2025-07-23 09:14] LABS: Hemoglobin 11.8 g/dL (14.1-18.0)
[2025-07-23] MEDS: HYDROCODONE/APAP 5/325 MG TABLET 1 TAB PO ×2 (09:23→17:06)
[2025-07-23] MEDS: 0.9 % SODIUM CHLORIDE 1000ML 1,000 ML 125 ML IV ×3 (09:26→23:45)
--- NOTE | 2025-07-23 09:26 | HMH.PHAAMS2 ---
- Antimicrobial Stewardship Review culture & sensitivity review Stewardship interventions: culture & sensitivity review, reviewed - no change Comments: CULTURES PENDING, ZOSYN EMPIRICALLY
--- NOTE | 2025-07-23 09:33 | PC.NURSE ---
Spoke with patient on ipad in Urdu. He had no questions or concerns at this time.
[2025-07-23] MEDS: LORATADINE 10MG TABLET 10 MG PO (09:37)
[2025-07-23] MEDS: IRBESARTAN 75MG TABLET 75 MG PO (09:37)
[2025-07-23] MEDS: FLUTICASONE PROP 50MCG NASAL SPRAY 16GM 1 SPRAY NS (09:38)
--- NOTE | 2025-07-23 14:59 | PC.NURSE ---
Aox 4, up ad oralia, three lap sites c/d/i, 20G L AC NS@ 125ML/HR, contuine iv abx and check labs in the am.
--- NOTE | 2025-07-23 16:24 | PC.NURSE ---
Temp 103.2 oral reported to me by the tech. Ketorolac given iv and covers removed off patient.
[2025-07-23] MEDS: KETOROLAC 30MG/ML VIAL 15 MG IV (16:26)
[2025-07-24 04:00] VITALS: BP 129/58; PULSE 85; RESP 16; TEMP 37.7; O2SAT 96; BMI 26.1
--- NOTE | 2025-07-24 04:00 | PC.NURSE ---
Patient's primary language is Sinhala. Due to the language barrier, an warehouse shipper (provided by this facility's iPad device) was utilized to communicate with the patient efficiently and more effectively this shift.
[2025-07-24] MEDS: PIPERACILLIN/TAZO 4.5 GM in 0.9 % SODIUM CHLORIDE 100 ML IV ×4 (05:02→22:36)
[2025-07-24 05:46] LABS: Hematocrit 31.9 % (42.0-52.0); Hemoglobin 10.7 g/dL (14.1-18.0); Immature Granulocytes % 0.4 %; Mean Corpuscular HGB Conc 33.5 g/dL (31.8-35.4); Mean Corpuscular Hemoglobin 30.0 pg (27.0-31.2); Mean Corpuscular Volume 89.4 fl (80-94); Nucleated Red Blood Cells % 0 %; Platelet Count 272 K/mm3 (142-424); Red Blood Count 3.57 M/mm3 (4.60-6.20); Red Cell Distribution Width-SD 43.5 fL; White Blood Count 17.2 K/mm3 (4.8-10.8)
--- NOTE | 2025-07-24 07:44 | P.PN_ITS ---
Subjective Patient reports: no new complaints Exam Data for Last 24 hours Vital signs and Labs for Last 24 Hours: Temp Pulse Resp BP Pulse Ox O2 Del Method O2 Flow Rate 99.9 F H 85 16 129/58 L 96 Room Air 2 07/24/25 04:00 07/24/25 04:00 07/24/25 04:00 07/24/25 04:00 07/24/25 04:00 07/24/25 06:35 07/22/25 14:05 Laboratory Results - last 24 hr 07/23/25 06:32: Hgb 11.8 L D, Sodium 133 L, Potassium 3.6, Chloride 105, Carbon Dioxide 23, Anion Gap 8.6, BUN 19, Creatinine 1.20, Estimated Creat Clear 78, Estimated GFR 65, Est GFR ( Amer) 79, Glucose 96 D, Calcium 8.2 L 07/24/25 05:22: WBC 17.2 H, RBC 3.57 L, Hgb 10.7 L, Hct 31.9 L, MCV 89.4, MCH 30.0, MCHC 33.5, RDW 13.1, Plt Count 272, MPV 10.6 H, Neut % (Auto) 82.7 H, Lymph % (Auto) 11.5, [place] % (Auto) 5.1, Eos % (Auto) 0.1, Baso % (Auto) 0.2, Neut # (Auto) 14.2 H, Lymph # (Auto) 2.0, [place] # (Auto) 0.9, Eos # (Auto) 0.0, Baso # (Auto) 0.0 I & O for Last 24 hours: Intake & Output 07/21/25 07/22/25 07/23/25 07/24/25 11:59 11:59 11:59 11:59 Intake Total 3300 / 3300 3309.583 / 3309.583 Output Total 875 / 875 Balance 2425 / 2425 3308.583 / 3308.583 Weight 155 lb 158 lb 153 lb Microbiology Reports for the Last 24 Hours: Microbiology 07/22/25 09:03 Urine,Clean Catch Urine Culture - Final NO GROWTH AFTER 48 HOURS 07/22/25 10:11 Blood Blood Culture - Preliminary NO GROWTH AFTER 24 HOURS 07/22/25 10:02 Blood Blood Culture - Preliminary NO GROWTH AFTER 24 HOURS Constitutional Constitutional: no acute distress *Routine Respiratory Exam Respiratory: Absent respiratory distress *Routine Cardiovascular Exam Cardiovascular: Absent tachycardia *Routine Abdominal Exam Abdominal: Present soft and tenderness (Appropriate post-operative tenderness) Comments: Incisions clean, dry, and intact. No erythema. Progress Note: A&P Assessment and plan (1) Acute perforated appendicitis: Status: Acute Assessment and plan: Overall, doing well postoperative day 2 status post laparoscopic appendectomy HLIV Continue to increase ambulation Continue IV antibiotics Await improved return of bowel function prior to advancement of diet beyond full liquids (2) Leukocytosis: Status: Acute Assessment and plan: White blood cell count continuing to show slight improvement this morning. Left shift remains. Continue current antibiotics for perforated appendicitis (may alter antibiotic coverage if he does not continue to show improvement) Repeat CBC in a.m.
[2025-07-24 08:00] VITALS: BP 120/68; PULSE 78; RESP 16; TEMP 37.6; O2SAT 95
--- NOTE | 2025-07-24 09:01 | HMH.PHAAMS2 ---
- Antimicrobial Stewardship Review culture & sensitivity review Stewardship interventions: culture & sensitivity review (PATIENT CURRENTLY ON ZOSYN, WBC STILL ELEVATED, T MAX 99.9F OVERNIGHT, CX NEGATIVE SO FAR.)
[2025-07-24] MEDS: IRBESARTAN 75MG TABLET 75 MG PO (09:08)
[2025-07-24] MEDS: LORATADINE 10MG TABLET 10 MG PO (09:08)
[2025-07-24 12:00] VITALS: BP 123/68; PULSE 99; RESP 14; TEMP 37.1; O2SAT 94
--- NOTE | 2025-07-24 15:48 | PC.NURSE ---
AOX4, NON-SWISS SPEAKING AND REQUIRES CHISEL TRIMMER. TOLERATED AMBULATION WELL. DENIED PAIN T/O SHIFT. TOLERATING DIET WELL. INCENTIVE KELVIN AT BEDSIDE.
[2025-07-24 16:00] VITALS: BP 135/67; PULSE 69; RESP 14; TEMP 37.6; O2SAT 96
[2025-07-24 20:00] VITALS: BP 143/65; PULSE 65; RESP 16; TEMP 37.5; O2SAT 96
--- NOTE | 2025-07-25 03:00 | PC.NURSE ---
Pt AOx4, pleasant. Clinical Services Consultant used. Pt reports very little pain, but states that he is passing flatus and having bowel movements. Tolerating room air. Currently resting in bed with eyes closed. Respirations even and unlabored. Bed is low, locked, and call light is in reach.
[2025-07-25 04:00] VITALS: BP 122/78; PULSE 64; RESP 14; TEMP 36.9; O2SAT 96; BMI 25.2
[2025-07-25] MEDS: PIPERACILLIN/TAZO 4.5 GM in 0.9 % SODIUM CHLORIDE 100 ML IV ×4 (05:10→22:27)
[2025-07-25 06:59] LABS: Hematocrit 34.9 % (42.0-52.0); Hemoglobin 11.6 g/dL (14.1-18.0); Immature Granulocytes % 0.5 %; Mean Corpuscular HGB Conc 33.2 g/dL (31.8-35.4); Mean Corpuscular Hemoglobin 29.7 pg (27.0-31.2); Mean Corpuscular Volume 89.3 fl (80-94); Nucleated Red Blood Cells % 0 %; Platelet Count 335 K/mm3 (142-424); Red Blood Count 3.91 M/mm3 (4.60-6.20); Red Cell Distribution Width-SD 42.8 fL; White Blood Count 14.7 K/mm3 (4.8-10.8)
[2025-07-25 08:00] VITALS: BP 139/85; PULSE 65; RESP 14; TEMP 36.7; O2SAT 96
[2025-07-25] MEDS: LORATADINE 10MG TABLET 10 MG PO (08:05)
[2025-07-25] MEDS: IRBESARTAN 75MG TABLET 75 MG PO (08:05)
--- NOTE | 2025-07-25 09:22 | HMH.PHAAMS2 ---
- Antimicrobial Stewardship Review culture & sensitivity review Stewardship interventions: culture & sensitivity review (POST ACUTE APPENDICITIS WITH APPI, WBC TRENDING DOWN POST PROCEDURE, NO GROWTH IN CX, ON ZOSYN.)
--- NOTE | 2025-07-25 09:24 | HMH.PHAAMS2 ---
- Antimicrobial Stewardship Review 48 hour timeout review Stewardship interventions: 48 hour timeout review (POST ACUTE APPENDICITIS WITH APPI, WBC TRENDING DOWN POST PROCEDURE, NO GROWTH IN CX, ON ZOSYN.)
--- NOTE | 2025-07-25 09:59 | P.PN_ITS ---
Subjective Narrative: Patient currently postoperative day #3 from laparoscopic appendectomy for fulminant necrotic perforated appendicitis. No appreciable complaints. Tolerating full liquid diet. Exam Data for Last 24 hours Vital signs and Labs for Last 24 Hours: Temp Pulse Resp BP Pulse Ox O2 Del Method O2 Flow Rate 98.0 F 65 14 139/85 96 Room Air 2 07/25/25 08:00 07/25/25 08:00 07/25/25 08:00 07/25/25 08:00 07/25/25 08:00 07/25/25 08:00 07/22/25 14:05 Laboratory Results - last 24 hr 07/25/25 06:36: WBC 14.7 H, RBC 3.91 L, Hgb 11.6 L, Hct 34.9 L, MCV 89.3, MCH 29.7, MCHC 33.2, RDW 13.1, Plt Count 335, MPV 10.8 H, Neut % (Auto) 80.1 H, Lymph % (Auto) 12.3, [place] % (Auto) 5.6, Eos % (Auto) 1.2, Baso % (Auto) 0.3, Neut # (Auto) 11.8 H, Lymph # (Auto) 1.8, [place] # (Auto) 0.8, Eos # (Auto) 0.2, Baso # (Auto) 0.1 I & O for Last 24 hours: Intake & Output 07/22/25 07/23/25 07/24/25 07/25/25 11:59 11:59 11:59 11:59 Intake Total 3300 / 3300 4409.583 / 4409.583 1170 / 1170 Output Total 875 / 875 251 / 251 300 / 300 Balance 2425 / 2425 4158.583 / 4158.583 870 / 870 Weight 155 lb 158 lb 153 lb 148 lb Microbiology Reports for the Last 24 Hours: Microbiology 07/22/25 10:11 Blood Blood Culture - Preliminary NO GROWTH AFTER 48 HOURS 07/22/25 10:02 Blood Blood Culture - Preliminary NO GROWTH AFTER 48 HOURS 07/22/25 09:03 Urine,Clean Catch Urine Culture - Final NO GROWTH AFTER 48 HOURS *Routine Abdominal Exam Abdominal: Present soft; Absent distended Comments: Mild tenderness right lower quadrant. Progress Note: A&P Assessment and plan (1) Acute perforated appendicitis: Status: Acute Assessment and plan: Leukocytosis slowly improving. White blood cell count 14,700. Maximum temperature is 99.7. Currently 98.0. Continue inpatient IV antibiotics for now. (2) Leukocytosis: Status: Acute
[2025-07-25 11:54] VITALS: BP 129/58; PULSE 65; RESP 16; TEMP 36.7; O2SAT 97
[2025-07-25 16:00] VITALS: BP 139/89; PULSE 67; RESP 14; TEMP 36.9; O2SAT 98
[2025-07-25 20:00] VITALS: BP 144/89; PULSE 58; RESP 14; TEMP 36.9; O2SAT 97
[2025-07-25] MEDS: KETOROLAC 30MG/ML VIAL 15 MG IV (22:34)
--- NOTE | 2025-07-26 01:43 | PC.NURSE ---
Pt AOx4, pleasant. Had some pain earlier in the shift that was treated per OCT. Received IVABx as ordered. Pt is currently resting in bed with eyes closed. Respirations even and unlabored. Bed is low, locked, and call light is in reach.
[2025-07-26 04:00] VITALS: BP 135/81; PULSE 66; RESP 14; TEMP 36.8; O2SAT 96; BMI 24.9
[2025-07-26] MEDS: PIPERACILLIN/TAZO 4.5 GM in 0.9 % SODIUM CHLORIDE 100 ML IV ×2 (04:04→10:01)
[2025-07-26 07:25] LABS: Blood Urea Nitrogen 22 mg/dl (9-20); Creatinine Clearance Estimated 67 mL/min (50-200); Creatinine,Serum 1.30 mg/dl (0.66-1.25); Estimated Glomerular Filt Rate 59 ml/min (>60); GFR (African American) 72 ML/MIN (>60)
[2025-07-26 07:57] LABS: Anion Gap 12.9 mEq/L (5-15); Calcium 9.3 mg/dl (8.4-10.2); Carbon Dioxide 16 mmol/L (22.0-30.0); Chloride 113 mmol/L (98-107); Glucose 94 mg/dl (74-100); Potassium 3.9 mmoL/L (3.5-5.1); Sodium 138 mmol/L (136-145)
[2025-07-26 08:00] VITALS: BP 141/95; PULSE 69; RESP 18; TEMP 36.4; O2SAT 98
[2025-07-26] MEDS: IRBESARTAN 75MG TABLET 75 MG PO (08:14)
[2025-07-26] MEDS: LORATADINE 10MG TABLET 10 MG PO (08:14)
--- NOTE | 2025-07-26 08:42 | HMH.PHAAMS2 ---
- Antimicrobial Stewardship Review culture & sensitivity review Stewardship interventions: culture & sensitivity review (CURRENTLY ON ZOSYN POST APPENDECTOMY, WBC DECREASING AND AFEBRILE.)
[2025-07-26 09:27] LABS: Hematocrit 34.7 % (42.0-52.0); Hemoglobin 11.8 g/dL (14.1-18.0); Immature Granulocytes % 0.3 %; Mean Corpuscular HGB Conc 34.0 g/dL (31.8-35.4); Mean Corpuscular Hemoglobin 30.2 pg (27.0-31.2); Mean Corpuscular Volume 88.7 fl (80-94); Nucleated Red Blood Cells % 0 %; Platelet Count 382 K/mm3 (142-424); Red Blood Count 3.91 M/mm3 (4.60-6.20); Red Cell Distribution Width-SD 42.8 fL; White Blood Count 10.0 K/mm3 (4.8-10.8)
--- NOTE | 2025-07-26 10:11 | EXP.SURG.PN ---
Subjective Narrative: Patient doing well with no complaints. Afebrile for greater than 24 hours. White blood cell count normalized today. Exam Data for Last 24 hours Vital signs and Labs for Last 24 Hours: Temp Pulse Resp BP Pulse Ox O2 Del Method O2 Flow Rate 97.6 F 69 18 141/95 H 98 Room Air 2 07/26/25 08:00 07/26/25 08:00 07/26/25 08:00 07/26/25 08:00 07/26/25 08:00 07/26/25 08:00 07/22/25 14:05 Laboratory Results - last 24 hr 07/26/25 06:52: WBC 10.0 D, RBC 3.91 L, Hgb 11.8 L, Hct 34.7 L, MCV 88.7, MCH 30.2, MCHC 34.0, RDW 13.2, Plt Count 382, MPV 11.0 H, Neut % (Auto) 75.0, Lymph % (Auto) 16.1, [place] % (Auto) 5.6, Eos % (Auto) 2.6, Baso % (Auto) 0.4, Neut # (Auto) 7.5, Lymph # (Auto) 1.6, [place] # (Auto) 0.6, Eos # (Auto) 0.3, Baso # (Auto) 0.0, Sodium 138, Potassium 3.9, Chloride 113 H, Carbon Dioxide 16 L, Anion Gap 12.9, BUN 22 H, Creatinine 1.30 H, Estimated Creat Clear 67, Estimated GFR 59, Est GFR ( Amer) 72, Glucose 94, Calcium 9.3 I & O for Last 24 hours: Intake & Output 07/23/25 07/24/25 07/25/25 07/26/25 11:59 11:59 11:59 11:59 Intake Total 3300 / 3300 4409.583 / 4409.583 1270 / 1270 1660 / 1660 Output Total 875 / 875 251 / 251 300 / 300 600 / 600 Balance 2425 / 2425 4158.583 / 4158.583 970 / 970 1060 / 1060 Weight 158 lb 153 lb 148 lb 146 lb *Routine Abdominal Exam Abdominal: Present soft; Absent tenderness Comments: Trocar sites clean Progress Note: A&P Assessment and plan (1) Acute perforated appendicitis: Status: Acute Assessment and plan: DC home today. Close outpatient follow-up (2) Leukocytosis: Status: Acute
--- NOTE | 2025-07-26 10:16 | EXP.DC.SUM ---
General Admission date:: 07/22/25 Discharge date: 07/26/25 HPI HPI HPI: This is a 44-year-old gentleman who presented to the emergency department with increasing right lower quadrant pain. Radiographic evidence consistent with appendicitis noted. CBC from earlier today reviewed. WBC 18.3. Neutrophil percentage 78.2. CMP from earlier today reviewed. Potassium normal. Creatinine normal. LFTs normal. CT scan of abdomen/pelvis from earlier today reviewed. Impression as follows: Acute appendicitis in the retrocecal appendix. Areas of hypodensity in the prostate which is enlarged for age, prostatitis on excluded. Enlarged kidneys with innumerable cysts raising concern for autosomal dominant polycystic kidney disease. Forwarded from emergency department evaluation: Chief complaint: Abdominal Pain Stated complaint: Stomach Pain Time Seen by Provider: 07/22/25 07:38 Mode of Arrival: Ambulatory Source of Information: Patient Description of Symptoms (Recalled from ER Triage Doc. by RN): pt presents to ED with c/o right sided abdominal pain. pt reports symptoms began last night around 10 pm. pt reports that last night he took an omprazole but no relief. pt reports no history of surgeries. pt reports some nausea, but no vomitting or diarrhea. . Hospital Course Hospital Course Hospital Course: Patient was taken to the operating room with Dr. Canas on 07/22/2025 at which time he underwent laparoscopic appendectomy and was found to have retrocecal appendix with perforation and profound inflammation and necrosis of the mid and distal appendix with viable appendiceal base. Please see operative dictation for complete details. Postoperatively he remained on Zosyn for antibiotic coverage for perforated necrotic appendix. He had a slowly improving white blood cell count with persistent leukocytosis for a couple of days. He did have some elevation of temperature in the first couple of days postoperatively. By postoperative day #4, 07/26/2025, his white blood cell count had normalized and his temperature was normal for greater than 24 hours. He had been tolerating full liquid diet. He felt well with no complaints. Arrangements were made for discharge home at that time. Exam Data for Last 24 hours Vital signs and Labs for Last 24 Hours: Temp Pulse Resp BP Pulse Ox O2 Del Method O2 Flow Rate 97.6 F 69 18 141/95 H 98 Room Air 2 07/26/25 08:00 07/26/25 08:00 07/26/25 08:00 07/26/25 08:00 07/26/25 08:00 07/26/25 08:00 07/22/25 14:05 Laboratory Results - last 24 hr 07/26/25 06:52: WBC 10.0 D, RBC 3.91 L, Hgb 11.8 L, Hct 34.7 L, MCV 88.7, MCH 30.2, MCHC 34.0, RDW 13.2, Plt Count 382, MPV 11.0 H, Neut % (Auto) 75.0, Lymph % (Auto) 16.1, [place] % (Auto) 5.6, Eos % (Auto) 2.6, Baso % (Auto) 0.4, Neut # (Auto) 7.5, Lymph # (Auto) 1.6, [place] # (Auto) 0.6, Eos # (Auto) 0.3, Baso # (Auto) 0.0, Sodium 138, Potassium 3.9, Chloride 113 H, Carbon Dioxide 16 L, Anion Gap 12.9, BUN 22 H, Creatinine 1.30 H, Estimated Creat Clear 67, Estimated GFR 59, Est GFR ( Amer) 72, Glucose 94, Calcium 9.3 I & O for Last 24 hours: Intake & Output 07/23/25 07/24/25 07/25/25 07/26/25 11:59 11:59 11:59 11:59 Intake Total 3300 / 3300 4409.583 / 4409.583 1270 / 1270 1660 / 1660 Output Total 875 / 875 251 / 251 300 / 300 600 / 600 Balance 2425 / 2425 4158.583 / 4158.583 970 / 970 1060 / 1060 Weight 158 lb 153 lb 148 lb 146 lb Results Data Completed and Pending Labs on day of discharge: Labs from last 24 hours 07/26/25 06:52 WBC 10.0 D RBC 3.91 L Hgb 11.8 L Hct 34.7 L MCV 88.7 MCH 30.2 MCHC 34.0 RDW 13.2 Plt Count 382 MPV 11.0 H Neut % (Auto) 75.0 Lymph % (Auto) 16.1 [place] % (Auto) 5.6 Eos % (Auto) 2.6 Baso % (Auto) 0.4 Neut # (Auto) 7.5 Lymph # (Auto) 1.6 [place] # (Auto) 0.6 Eos # (Auto) 0.3 Baso # (Auto) 0.0 Sodium 138 Potassium 3.9 Chloride 113 H Carbon Dioxide 16 L Anion Gap 12.9 BUN 22 H Creatinine 1.30 H Estimated Creat Clear 67 Estimated GFR 59 Est GFR ( Amer) 72 Glucose 94 Calcium 9.3 Preliminary micro results at discharge 07/22/25 10:11 Blood Culture - Preliminary Blood NO GROWTH AFTER 48 HOURS 07/22/25 10:02 Blood Culture - Preliminary Blood NO GROWTH AFTER 48 HOURS DS: Diagnosis Discharge Diagnosis (1) Acute perforated appendicitis: Status: Acute Code(s): K35.32 - Acute appendicitis with perforation, localized peritonitis, and gangrene, without abscess (2) Leukocytosis: Status: Acute Code(s): D72.829 - Elevated white blood cell count, unspecified Meds Home Medications and Allergies Home Medications ?Medication ?Instructions ?Recorded ?Confirmed ?Type fexofenadine 180 mg tablet 180 mg PO DAILY 07/22/25 07/22/25 History fluticasone propionate 50 1 spray intranasal BID PRN 07/22/25 07/22/25 History mcg/actuation nasal ALLERGIES spray,suspension (Flonase Allergy Relief) irbesartan 75 mg tablet 75 mg PO DAILY 07/22/25 07/22/25 History amoxicillin 500 mg-potassium 1 tab PO BID #10 tabs 07/26/25 Rx clavulanate 125 mg tablet New Prescriptions to Start Prescriptions: amoxicillin-pot clavulanate Shola Cuevas Allergies Allergy/AdvReac Type Severity Reaction Status Date / Time No Known Allergies Allergy Verified 07/22/25 07:49 Discharge Plan Disposition Patient Disposition: Home, Self-Care Condition: Good Discharge Order Discharge Orders: Discharge Order (Routine); Ordered 07/26/25 Ordered By: Shola Cuevas Follow up Plan Follow up with: Provider,Referral, [Primary Care Provider, Medical] - See instructions Zohaib Canas MD [Staff Physician, General Surgery] - 07/29/25 10:15 am Prescriptions/Medication Reconciliation: New amoxicillin-pot clavulanate 500-125 mg tablet 1 tab PO BID Qty: 10 0RF Continued fexofenadine 180 mg Tablet 180 mg PO DAILY irbesartan 75 mg Tablet 75 mg PO DAILY fluticasone propionate [Flonase Allergy Relief] 50 mcg/actuation [place],Suspension 1 spray INTRANASAL BID PRN (Reason: ALLERGIES) Rx Instructions: administer into each nostril Problem Reconciliation Problems Reviewed?: Yes Patient Discharge Instructions ACTIVITY: Ambulate as tolerated and No heavy lifting DIET: advance to your usual diet Patient Instructions: Appendicitis, DI for Surgical Site Infection, Laparoscopic Appendectomy Surgery Print Language: Slovenian Providers Primary Care Provider: Provider,Referral Admit Provider: Zohaib Canas Attending Provider: Zohaib Canas
--- NOTE | 2025-07-27 14:47 | EXP.ANES.II ---
[facility] Anesthesia Record Part II Anesthesia Record Part II Discharge Time: 13:45 Destination: Medical Surgical Department PACU nurse assessment reviewed?: Yes Patient Condition:: Good Anesthesia Complications:: None Swallowing reflex intact?: Yes Airway Patency: Patent Cyanosis?: No Blood Pressure: 150/85 SaO2: 92 Respiratory Rate: 18 Pulse Rate: 85 Temperature: 102 F Mental Status: Alert & Oriented Pain level:: 0 Nausea and/or vomitting:: None Intake, IV Amount: 0 Hydration: Adequate
[2025-07-27 14:49] VITALS: BP 150/85; PULSE 85; RESP 18; TEMP 38.8; O2SAT 92
--- NOTE | 2025-07-28 14:04 | CARE MANAGER ---
Attempted to contact patient x2 related to hospital discharge. No VM option.
== END 2025-07-26 12:03 | disposition home or self-care (01) | DRG 398 ==
LOC: ER 08:23 → SDC 10:56 → 2ND 13:18
PROVIDERS: Surgery; Admitting Provider Surgery; Emergency Provider Student in an Organized Health Care Education/Training Program; Visit Provider Surgery
PROC: 0DTJ4ZZ Resection of Appendix, Percutaneous Endoscopic Approach (ICD-10-PCS; CPT 44970; principal; 2025-07-22 11:00)
DX: K35.32 Acute appendicitis with perforation, localized peritonitis, and gangrene, without abscess (principal); R65.10 Systemic inflammatory response syndrome (SIRS) of non-infectious origin without acute organ dysfunction
CPT/HCPCS: 36415; 51702; 74177; 80048; 80053; 81001; 83690; 83735; 85025; 85610; 86803; 86850; 87040; 87086; 87389; 96374; 99285; J0330; J1100; J1885; J2003; J2250; J2270; J2405; J2543; J2704; J2795; J3010; J7030; J7120; Q9967